=== PATIENT | female | born 1940 | race Caucasian/White ===

== ENCOUNTER 2017-10-17 10:12 | Inpatient (IN) | END 2017-10-18 14:54 | disposition home or self-care (01) | DRG 470 ==

== ENCOUNTER 2017-12-08 08:45 | Inpatient (IN) | payer MEDICARE ==
[~2017-12-08] VITALS: Ht 154.9 cm; Wt 54.9 kg
[~2017-12-08 08:45] MED LIST: ACET325 PO; ACETAMINOPHEN500 MG PO; AMLO5 PO; ASPI325EC PO; ASPI81CH PO; Amlodipine Bes2.5 MG PO; DULO30 PO; DULO60 PO; Diovan320 MG PO; FOLGARD TABLET1 EACH; GABA100 PO; MELO7.5 PO; OXYC10ER PO; OXYC5 PO; Percocet 5-3251 EACH PO; VALS80 PO; VIT1CAPS12
[2017-12-26] MEDS ORDERED: ASPI325EC PO (14:01)
[2017-12-26 17:40] LABS: Hematocrit 27.3 % (33.0-51.0); Hemoglobin 8.9 g/dL (11.5-16.0)
[2017-12-27 04:08] LABS: BASOPHILS ABSOLUTE AUTO 0.01 K/mm3 (0.00-0.23); BASOPHILS PERCENT AUTO 0 % (0-2); EOSINOPHILS PERCENT AUTO 0 % (0-6); Hematocrit 22.1 % (33.0-51.0); Hemoglobin 7.3 g/dL (11.5-16.0); IMMATURE GRAN ABSOLUTE AUTO 0.04 K/mm3 (0.00-0.10); IMMATURE GRAN PERCENT AUTO 1 % (0-1); LYMPHOCYTES ABSOLUTE AUTO 0.66 K/mm3 (0.84-5.20); LYMPHOCYTES PERCENT AUTO 8 % (21-46); MONOCYTES ABSOLUTE AUTO 0.74 K/mm3 (0.16-1.47); MONOCYTES PERCENT AUTO 8 % (4-13); Mean Corpuscular HGB 29.8 pg (26.0-34.0); Mean Corpuscular Volume 90 fL (80-100); Mean Platelet Volume 8.7 fL (9.1-12.4); NEUTROPHILS ABSOLUTE AUTO 7.36 K/mm3 (1.96-9.15); NEUTROPHILS PERCENT AUTO 84 % (41-73); Platelet Count 154 K/mm3 (150-400); RDW Coefficient Variation 11.8 % (11.7-14.2); Red Blood Cell Count 2.45 M/mm3 (3.80-5.20); White Blood Cell Count 8.81 K/mm3 (4.00-11.30)
[2017-12-27 04:27] LABS: Anion Gap 7 mmol/L (6-16); Blood Urea Nitrogen 11 mg/dL (8-24); Bun/Creatinine Ratio 19.4 (12.0-20.0); CO2, Blood 27 mmol/L (21-32); Calcium, Blood 8.2 mg/dL (8.5-10.1); Chloride, Blood 104 mmol/L (98-108); Creatinine, Blood 0.57 mg/dL (0.40-1.00); Glomerular Filtration Rate >60 (60-); Glucose, Blood 137 mg/dL (70-99); Magnesium, Blood 2.1 mg/dL (1.6-2.4); Potassium, Blood 4.2 mmol/L (3.5-5.5); Sodium, Blood 138 mmol/L (136-145)
[2017-12-28 04:19] LABS: Hemoglobin 8.1 g/dL (11.5-16.0)
== END 2017-12-28 10:30 | disposition home or self-care (01) | DRG 470 ==
LOC: PRE IP 12-26 07:30 → SURS 12-26 09:35 → PRE IP 12-26 13:30 → SURS 12-26 17:38
PROVIDERS: Orthopaedic Surgery
PROC: BQ111ZZ Fluoroscopy of Left Hip using Low Osmolar Contrast (ICD-10-PCS; 2017-12-26)
PROC: 0SRB04A Replacement of Left Hip Joint with Ceramic on Polyethylene Synthetic Substitute, Uncemented, Open Approach (ICD-10-PCS; principal; 2017-12-26 13:30)
DX: M16.12 Unilateral primary osteoarthritis, left hip (principal); M87.052 Idiopathic aseptic necrosis of left femur; D62 Acute posthemorrhagic anemia; Z96.641 Presence of right artificial hip joint; I10 Essential (primary) hypertension; Z88.6 Allergy status to analgesic agent
CPT/HCPCS: 36415; 72170; 80048; 83735; 85014; 85018; 85025; 86850; 86900; 86901; 86923; 88300; 97110; 97116; 97162; 97165; 97530; 97535; C1776; G8978; G8979; G8987; G8988; G8989; J0171; J0330; J0690; J0735; J1100; J1885; J2250; J2370; J2405; J2795; J7120; P9016

== ENCOUNTER → 2019-04-03 | Outpatient (CLI) | payer MEDICARE | LOC: PLD 07:14 → LAB SHORT 07:14 | DX: C44.529 Squamous cell carcinoma of skin of other part of trunk (principal) | CPT/HCPCS: 88305 ==

== ENCOUNTER → 2019-05-28 | Outpatient (CLI) | payer MEDICARE | END | disposition home or self-care (01) | LOC: LAB SHORT 13:59 → PLD 13:59 | DX: C44.529 Squamous cell carcinoma of skin of other part of trunk (principal) | CPT/HCPCS: 88305 ==

== ENCOUNTER → 2019-10-09 | Outpatient (CLI) | payer MEDICARE | END | disposition home or self-care (01) | LOC: PLD 14:53 → LAB SHORT 14:53 | DX: L57.0 Actinic keratosis (principal) | CPT/HCPCS: 88305 ==

== ENCOUNTER → 2020-04-08 | Outpatient (CLI) | payer MEDICARE | END | disposition home or self-care (01) | LOC: PLD 15:45 → LAB SHORT 15:45 | DX: D48.5 Neoplasm of uncertain behavior of skin (principal) | CPT/HCPCS: 88305 ==

== ENCOUNTER → 2023-05-01 | Outpatient (CLI) | payer MEDICARE ==
[2023-05-02 17:56] LABS: Adenovirus F 40/41 Not Detected (NOT DETECT); Astrovirus Not Detected (NOT DETECT); Campylobacter Sp Not Detected (NOT DETECT); Cryptosporidium Not Detected (NOT DETECT); Cyclospora Cayetanensis Not Detected (NOT DETECT); E. Coli O157 Not Detected (NOT DETECT); Entamoeba Histolytica Not Detected (NOT DETECT); Enteroaggregative E. coli-EAEC Not Detected (NOT DETECT); Enteropathogenic E. coli-EPEC Not Detected (NOT DETECT); Enterotoxigenic E. coli-ETEC Not Detected (NOT DETECT); Giardia Lamblia Not Detected (NOT DETECT); Norovirus GI/GII Not Detected (NOT DETECT); Plesiomonas Shigelloides Not Detected (NOT DETECT); Rotavirus A Not Detected (NOT DETECT); Salmonella Sp Not Detected (NOT DETECT); Sapovirus Not Detected (NOT DETECT); Shiga Toxin-prod E. coli-STEC Not Detected (NOT DETECT); Shigella/Enteroin E. coli-EIEC Not Detected (NOT DETECT); Vibrio Cholerae Not Detected (NOT DETECT); Vibrio Sp Not Detected (NOT DETECT); Yersinia Enterocolitica Not Detected (NOT DETECT)
== END ==
LOC: LAB 15:16 → LAB SHORT 15:16 → LAB FUT 04-27 14:50
PROVIDERS: Internal Medicine
DX: R19.7 Diarrhea, unspecified (principal)
CPT/HCPCS: 87507

== ENCOUNTER 2025-05-28 09:31 | Day surgery (SDC) | payer MEDICARE ==
[~2025-05-28] VITALS: Ht 175.3 cm; Wt 54.9 kg
[2025-05-28] VITALS (12 sets, daily range): BP systolic 117–184; BP diastolic 50–98
[~2025-05-28 09:31] MED LIST changes: +FURO20 PO; +OMEP20ER PO; +POTA10T PO; +PRAM.125 PO; +QUET25 PO; +SPIR25 PO
[2025-05-28] MEDS ORDERED: NS 1,000 ML IV ONE ×2 (10:26)
[2025-05-28] MEDS ORDERED: Midazolam HCl 1MG / ML 2ML Vial ONE (10:26)
[2025-05-28] MEDS ORDERED: Heparin Sodium 1000 Units/ML 10ML MDV ONE (10:26)
[2025-05-28] MEDS ORDERED: FentaNYL Citrate 50 MCG/ML 2 ML Injection ONE (10:26)
[2025-05-28] MEDS ORDERED: CeFAZolin Sodium 1000 mg Vial ONE (10:26)
[2025-05-28] MEDS ORDERED: NS 50 ML IV ONE (10:42)
[2025-05-28] MEDS ORDERED: HydrALAZINE HCl 20 MG / ML 1ML Vial ONE (12:42)
[2025-05-28] MEDS ORDERED: Ondansetron HCl 2 MG / ML 2ML Vial ONE (13:38)
--- NOTE | 2025-05-28 14:03 | NUR ---
PATIENT ARRIVED BACK TO RECOVERY ROOM WITH NAUSEA. PRN IV ZOFRAN GIVEN. NAUSEA RESOLVED. VSS ON RA. L CHEST INCISION SITE C/D/I. ICE PACK IN PLACE. WILL CONTINUE TO MONITOR.
--- NOTE | 2025-05-28 14:15 | NUR ---
PATIENT SITTING UPRIGHT IN BED TOLERATING PO INTAKE WELL. PATIENT DENYING ANY NAUSE AND PAIN. VSS ON RA. LEFT CHEST INCISION C/D/I WITH ICE PACK IN PLACE.
--- NOTE | 2025-05-28 15:00 | NUR ---
CHEST X RAY PERFORMED. NOTIFIED.
--- NOTE | 2025-05-28 15:15 | NUR ---
DISCAHRGE INSTRUCTIONS AND FOLLOW UP APPOINTMENTS REVIEWED WITH PATIENT AND FAMILY. ALL QUESTIONS WERE ANSWERED. VSS ON RA. LEFT CHEST DRESSING C/D/I. ICE PACK IN PLACE.
--- NOTE | 2025-05-28 15:24 | NUR ---
MD PRESENT AT BEDSIDE DISCUSSING RESULTS WITH PATIENT AND FAMILY.
--- NOTE | 2025-05-28 15:38 | NUR ---
PATIENT DISCHARGED HOME AT THIS TIME. ALL PATIENT BELONGINGS AND PAPERWORK LEFT WITH PATIENT. PIV REMOVED WITHOUT DIFFIUCLTY, CATHETER INTACT. PATIENT WHEELED TO HOSPITAL ENTRANCE AND SPOUSE ABLE TO PROVIDE TRANSPORTATION HOME.
== END 2025-05-28 15:50 | disposition home or self-care (01) ==
LOC: MHTC 09:31
DX: I44.1 Atrioventricular block, second degree (principal); I10 Essential (primary) hypertension; E78.5 Hyperlipidemia, unspecified; Z79.899 Other long term (current) drug therapy
CPT/HCPCS: 33208; 71046; 99152; 99153; C1785; C1894; C1898; J0360; J0690; J1644; J2250; J2405; J3010; J7030; J7040; Q9967